=== PATIENT | male | born 1975 | race Caucasian/White ===

== ENCOUNTER 2017-08-21 10:46 | Emergency (ER) | payer MEDICARE ==
[2017-08-21 10:56] VITALS: BMI 28.8
--- NOTE | 2017-08-21 11:56 | ED PDOC ---
Upper Extremity Pain/Injury Time Seen by Provider: 08/21/17 10:55 Chief Complaint (Nursing): Upper Extremity Problem/Injury History Per: Patient Additional Complaint(s): Pt. states yesterday he tripped going down the stairs. Pt. states he broke his fall with his outstretched arms. Reports injuring his L wrist/hand and "twisting " his R elbow. Also reports experiencing "whiplash" to his neck but reports no blunt trauma to R elbow or neck. Denies head injury, headache, LOC, numbness, tingling, chest pain, lower extremity injury. Past Medical History Reviewed: Historical Data, Nursing Documentation, Vital Signs Vital Signs: Last Vital Signs Temp 98.3 F 08/21/17 10:55 Pulse 75 08/21/17 10:55 Resp BP 111/74 08/21/17 10:55 Pulse Ox 99 08/21/17 10:55 - Medical History Other PMH: chronc neck pain - Surgical History Other surgeries: cervical disc surgery - Family History Family History: States: No Known Family Hx - Home Medications Home Medications: Ambulatory Orders Medication Instructions Recorded oxyCODONE/Acetaminophen [Percocet 1 - 2 ea PO Q8 PRN #14 tab 08/21/17 5/325 mg Tab] - Allergies Allergies/Adverse Reactions: Allergies Allergy/AdvReac Type Severity Reaction Status Date / Time No Known Allergies Allergy Verified 02/24/15 03:22 Review of Systems ROS Statement: Except As Marked, All Systems Reviewed And Found Negative Musculoskeletal: Positive for: Neck Pain, Hand Pain Physical Exam - Physical Exam Appears: Positive for: Well, Non-toxic, No Acute Distress Head Exam: Positive for: ATRAUMATIC, NORMAL INSPECTION, NORMOCEPHALIC Skin: Positive for: Normal Color, Warm. Negative for: Rash Eye Exam: Positive for: Normal appearance, PERRL Neck: Positive for: Normal, Painless ROM Pulses-Radial (L): 2+ Pulses-Radial (R): 2+ Back: Positive for: Normal Inspection, Other (b/l paracervical muscle tenderness ). Negative for: L CVA Tenderness, R CVA Tenderness, Vertebral Tenderness ( including cervical spine) Extremity: Positive for: Other (LUE: L wrist with mild tenderness and swelling, no elbow tenderness; RUE: R elbow tenderness with minimal swelling, no R hand/ wrist tenderness; no skin changes to b/l upper extremities) Neurologic/Psych: Positive for: Alert, Oriented. Negative for: Aphasia, Facial Droop - ECG O2 Sat by Pulse Oximetry: 99 - Progress ED Course And Treament: Toradol 30mg IM, flexeril 10mg PO, L wrist/hand, R elbow, c-spine x-rays ordered. L hand/wrist x-ray:Nondisplaced intra-articular distal radial fracture. R elbow x-ray: Nondisplaced radial head fracture. Case d/w Dr. Navarro, ortho student liaison officer, who agrees with care. Copies of x-rays uploaded onto CD and given to patient. Procedures - Time-Out Type of Procedure: Splint placement Site of Procedure: L arm, R elbow Correct Patient: Yes Correct Procedure: Yes Correct Site Marked: Yes X-Ray Marked: Yes PA/Tech: Javier PA-C - Splinting Location: L arm, R elbow Hand-Made Type: orthoglass (LEFT UPPER EXT: orthoglass sugar tong splint; RIGHT UPPER EXT: orthoglass posterior elbow splint) Pre-Proc Neuro Vasc Exam: normal Post-Proc Neuro Vasc Exam: normal Progress: Sling applied to both extremities. Advised to remove sling when prior to falling asleep. Also told to f/u with Dr. Navarro for further evaluation. Disposition - Clinical Impression Clinical Impression: Wrist fracture, left, Elbow fracture, right - Patient ED Disposition Is Patient to be Admitted: No - Disposition Referrals: Shane Navarro MD [Staff Provider] - [employer] [place] [Outside] Disposition: Routine/Home Disposition Time: 13:15 Condition: STABLE Additional Instructions: Follow up with Dr. Navarro in 2-3 days for further evaluation. Return to ED immediately if symptoms worsen. Prescriptions: oxyCODONE/Acetaminophen [Percocet 5/325 mg Tab] 1 - 2 ea PO Q8 PRN #14 tab PRN Reason: Pain Instructions: Elbow Fracture (DC), Wrist Fracture (DC) Forms: [employer] (Indian) Print Language: SAMI
--- NOTE | 2017-08-21 12:12 | RAD ---
PROCEDURE: Left Wrist Radiographs. HISTORY: trauma COMPARISON: None. FINDINGS: BONES: Nondisplaced fracture of the distal radius with extension to the radiocarpal articulation. JOINTS: Unremarkable. SOFT TISSUES: Circumferential wrist soft tissue swelling. OTHER FINDINGS: None. IMPRESSION: Nondisplaced intra-articular distal radial fracture.
--- NOTE | 2017-08-21 12:12 | RAD ---
PROCEDURE: Radiographs of the right elbow. HISTORY: trauma COMPARISON: No prior. FINDINGS: BONES: Nondisplaced radial head fracture. JOINTS: Normal. No osteoarthritis. SOFT TISSUES: Normal. JOINT EFFUSION: Anterior joint effusion. OTHER FINDINGS: None. IMPRESSION: Nondisplaced radial head fracture.
--- NOTE | 2017-08-21 12:14 | RAD ---
PROCEDURE: Cervical Spine Radiographs. HISTORY: Pain. COMPARISON: None. FINDINGS: BONES: Straightening of the normal lordosis. Prior anterior cervical disc fusion from C5-7 with intervening disc spacers. No fracture. Dens Intact. DISC SPACES: Mild multilevel narrowing. C5-6 and C6-7 disc spacers. SOFT TISSUES: Normal. No prevertebral soft tissue swelling. OTHER FINDINGS: None. IMPRESSION: Prior ACDF C5-7. No acute fracture. Segmental instability cannot be evaluated as flexion/ extension views were not provided.
[2017-08-21 14:00] VITALS: BP 126/78; PULSE 78; RESP 19; TEMP 97.5
[2017-08-21 14:59] VITALS: O2SAT 99
== END 2017-08-21 14:10 | disposition home or self-care (01) ==
LOC: H.ER 10:46
DX: S52.124A Nondisplaced fracture of head of right radius, initial encounter for closed fracture (principal); S52.502A Unspecified fracture of the lower end of left radius, initial encounter for closed fracture; W10.9XXA Fall (on) (from) unspecified stairs and steps, initial encounter
CPT/HCPCS: 29105; 72040; 73080; 73110; 73130; 96372; 99283; J1885